=== PATIENT | female | born 1980 | race Caucasian/White ===

== ENCOUNTER 2016-09-10 11:11 | Emergency (ER) | payer MEDICAID, OTHER ==
[~2016-09-10] VITALS: Ht 157.5 cm; Wt 74.0 kg
[2016-09-10 11:13] VITALS: Ht 157.5 cm; Wt 74.0 kg
[2016-09-10] MEDS ORDERED: KETOROLAC 60 MG INJ IM STA (12:19)
[2016-09-10] MEDS ORDERED: IBUP800T25 PO (12:21)
[2016-09-10] MEDS ORDERED: CARI350T PO (12:21)
--- NOTE | 2016-09-10 12:27 | ERD ---
ER Documentation Chief Complaint Date/Time DATE: 09/10/16 TIME: 12:25 Chief Complaint MARIELENA HIP PAIN RADIATING TO THE BACK HPI This 35-year-old female presents with lower back pain and bilateral hip pain that she has had for 2 months. 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 She denies any numbness or tingling, bowel or bladder incontinence, saddle anesthesia, dysuria, hematuria, or urinary frequency. She takes Tylenol at home which temporarily relieves her pain. ROS All systems reviewed and are negative except as per history of present illness. Medications Home Meds Active Scripts Carisoprodol* (Soma*) 350 Mg Tablet, 350 MG PO TID Y for MUSCLE SPASMS, #20 TAB Prov:AMANDA SEN PA-C 09/10/16 Ibuprofen* (Motrin*) 800 Mg Tab, 800 MG PO Q6, #30 TAB Prov:AMANDA SEN PA-C 09/10/16 Allergies Allergies: Coded Allergies: No Known Allergy (Unverified Allergy, Unknown, 06/03/06) FmHx Family History: No diabetes Physical Exam Vitals Vital Signs Date Time Temp Pulse Resp B/P Pulse Ox O2 Delivery O2 Flow Rate FiO2 09/10/16 11:13 98.3 69 18 124/78 98 Physical Exam General: well developed, well nourished, alert, nontoxic, no distress Head: normocephalic, atraumatic Respiratory: Clear to auscaultation bilaterally, speaks in full sentences, no use of accesory muscles or labored breathing, no rales, ronchi, or wheezing Cardiovascular: RRR, No murmurs Back: no midline tenderness, no step offs or bony abnormalities, sensation to light touch in tact Extremities: moving all extremities normally, normal gait, no edema Results 24 hrs Current Medications Medications (Trade) Dose Ordered Sig/Gerry Route PRN Reason Start Time Stop Time Status Last Admin Dose Admin Ketorolac Tromethamine (Toradol) 60 mg ONCE STAT IM 09/10/16 12:19 09/10/16 12:20 DC Procedures/MDM Patient has nontraumatic back pain and hip pain. She is ambulatory. Low suspicion for fracture. She is neurovascularly intact. She has no urinary symptoms. She has no saddle anesthesia or bowel or bladder incontinence. She was given Toradol injection a prescription for muscle relaxant and anti- inflammatory as well as outpatient referral to community clinics in orthopedics. Recommended this patient follow up with her primary care doctor within 48 hours or return to the emergency room for any worsening of symptoms. However this time I do believe there is suitable for outpatient management. I answered all their questions and they agreed with the plan and were discharged home. Departure Diagnosis: Primary Impression: Back pain Condition: Stable Patient Instructions: Back Pain (Acute Or Chronic) Referrals: COMMUNITY CLINICS YOU HAVE RECEIVED A MEDICAL SCREENING EXAM AND THE RESULTS INDICATE THAT YOU DO NOT HAVE A CONDITION THAT REQUIRES URGENT TREATMENT IN THE EMERGENCY DEPARTMENT. FURTHER EVALUATION AND TREATMENT OF YOUR CONDITION CAN WAIT UNTIL YOU ARE SEEN IN YOUR DOCTORS OFFICE WITHIN THE NEXT 1-2 DAYS. IT IS YOUR RESPONSIBILITY TO MAKE AN APPOINTMENT FOR FOLOW-UP CARE. IF YOU HAVE A PRIMARY DOCTOR --you should call your primary doctor and schedule an appointment IF YOU DO NOT HAVE A PRIMARY DOCTOR YOU CAN CALL OUR PHYSICIAN REFERRAL HOTLINE AT IF YOU CAN NOT AFFORD TO SEE A PHYSICIAN YOU CAN CHOSE FROM THE FOLLOWING [facility] CLINICS [facility] [id number] [facility] [facility]. [facility] [address] [facility] [facility] [address] [facility] [facility] [address] [facility] [address] [facility] [facility]. [address] [facility] Urgent Care 7 a.m.- 11 p.m. Every Day of the Week NO APPOINTMENT OR AUTHORIZATION NEEDED SO [facility] Hours: Mon-Fri 9:00 AM - 5:00 PM Additional Instructions: Call your primary care doctor TOMORROW for an appointment during the next 1-2 days.See the doctor sooner or return here if your condition worsens before your appointment time. AMANDA SEN PA-C Sep 10, 2016 12:27
== END 2016-09-10 12:45 | disposition home or self-care (01) ==
LOC: FTE 11:11
DX: M54.5 Low back pain (principal)
CPT/HCPCS: 96372; J1885; Z7502